=== PATIENT | female | born 1980 | race Two or more races ===

== ENCOUNTER 2025-04-19 18:49 | Emergency (ER) | payer MEDICAID, SELFPAY ==
[2025-04-19 18:50] VITALS: BMI 24.0
[2025-04-19 19:32] VITALS: BP 118/73; PULSE 66; RESP 16; TEMP 36.7; O2SAT 99
--- NOTE | 2025-04-19 19:36 | PD.EDABDPN ---
ED Abdominal Pain RME/HPI General Chief Complaint: Abdominal Pain Stated complaint: BILAT. LOWER ABD PAIN X1 DAY Time seen by provider: 04/19/25 18:55 Arrival date/time: 04/19/25 18:49 Source: patient, RN notes reviewed and old records reviewed Mode of arrival: ambulatory Limitations: no limitations RME / HPI RME / HPI narrative: 44yof presents to the ED for LLQ abdominal pain that started this morning. No fever, n/v/d or urinary symptoms reported. Ibuprofen taken this morning with mild relief. Related Data Previous Rx's ?Medication ?Instructions ?Recorded Promethazine/Codeine SYRUP * 5 ml PO Q6HR PRN COUGH OR 05/28/17 (PHENERGAN WITH CODEINE SYRUP *) CONGESTION #120 mL acetaminophen 500 mg tablet 500 mg PO Q6HR PRN PAIN #30 tabs 05/28/17 (Tylenol Extra Strength) albuterol sulfate 90 mcg/actuation 2 puff inhalation Q6HR PRN 05/28/17 aerosol inhaler (ProAir HFA) WHEEZING #1 inh benzocaine 20 %-menthol 0.5 % 1 spray topical TID #56 pumps 03/07/22 topical aerosol (Dermoplast (with menthol)) docusate sodium 100 mg capsule 100 mg PO BID #60 caps 03/07/22 (Colace) ibuprofen 800 mg tablet 800 mg PO Q6H PRN pain #120 tabs 03/07/22 lanolin 50 % topical ointment 1 applic topical TID PRN skin 03/07/22 irritation #15 tubes ibuprofen 600 mg tablet 600 mg PO Q6H PRN pain #20 tabs 04/19/25 methocarbamol 500 mg tablet 1,000 mg (2 x 500 mg) PO Q8H PRN 04/19/25 pain #30 tabs Allergies Allergy/AdvReac Type Severity Reaction Status Date / Time ampicillin Allergy Intermediate HIVES Verified 04/19/25 18:52 Review of Systems Review of Systems Systems Reviewed: All systems reviewed, normal except as documented Constitutional Constitutional: Denies chills and Denies fever(s) Gastrointestinal Gastrointestinal: Reports abdominal pain, Denies loose stools, Denies nausea and Denies vomiting Genitourinary Genitourinary: Denies dysuria and Denies hematuria Past Medical History Surgical History OTHER SURGICAL HX: denies pshx Social History SMOKING STATUS: Never smoker SUBSTANCE USE: does not use ALCOHOL: Never Past Medical History Comments PMH COMMENT: denies pmhx ED Exam General Limitations: Present no limitations General appearance: Present alert and in no apparent distress Head Head exam: Present atraumatic and normocephalic Eye Eye exam: Present normal appearance, PERRL and EOMI ENT ENT exam: Present normal exam and mucous membranes moist Neck Neck exam: Present normal inspection and full ROM Chest Chest inspection: Present normal inspection and symmetric chest wall rise Respiratory Respiratory exam: Present normal lung sounds bilaterally; Absent respiratory distress Cardiovascular Cardiovascular exam: Present regular rate and normal rhythm Abdominal Exam Abdominal exam: Present soft and tenderness (LLQ, mild); Absent distention, guarding or rebound Extremities Exam Extremities exam: Present normal inspection and full ROM Back Exam Back exam: Absent CVA tenderness (R) or CVA tenderness (L) Neurological Exam Neurological exam: Present alert and oriented X3 Psychiatric Psychiatric exam: Present normal affect and normal mood Skin Skin exam: Present warm, dry, intact and normal color Course Quality Measures none Orders Category Date Time Status CT Screening NOW Care 04/19/25 19:37 Completed Insert IV NOW Care 04/19/25 19:[address] abdomen pelvis w con Stat Exams 04/19/25 19:37 Completed CBC Stat Lab 04/19/25 19:55 Completed CMP [Comprehensive Metabolic Panel] Stat Lab 04/19/25 19:55 Completed HCG Qualitative,Urine Stat Lab 04/19/25 19:57 Completed Lipase Stat Lab 04/19/25 19:55 Completed UA [Urinalysis] Stat Lab 04/19/25 19:57 Completed Ketorolac Inj [Toradol Inj] Med 04/19/25 19:45 Discontinued 30 mg IVP X1 ONE Vital Signs Vital signs: Vital Signs Temperature 98.1 F 04/19/25 19:32 Pulse Rate 66 04/19/25 19:32 Respiratory Rate 16 04/19/25 19:32 Blood Pressure 118/73 04/19/25 19:32 Pulse Oximetry (%) 99 04/19/25 19:32 Oxygen Delivery Method Room Air 04/19/25 19:32 Abdominal Pain MDM MDM Narrative MDM Narrative:: 44yof presents to the ED for LLQ abdominal pain that started this morning. No fever, n/v/d or urinary symptoms reported. Ibuprofen taken this morning with mild relief. Patient updated on labs and imaging. Encouraged close follow-up with political organizer. Stable for dc, RTED precautions given. Patient data External records reviewed:: [facility] previous records (admit 12/21/16 for labor and delivery) Clinical information provided by:: patient Social determinants that could affect healthcare access:: other (specify) (poor access to healthcare, acculturation difficulty) Patient has the following chronic illnesses:: none How is presenting disease/condition affected by chronic disease/condition?: no chronic disease Evaluation data The following diagnostics were reviewed and interpreted by me:: lab results and radiology exam(s) Lab and/or radiology exams considered but not ordered:: none Interpretation Summary: No leukocytosis Negative upreg Negative urine No ASHLEY CT abdomen/pelvis: IMPRESSION: No CT findings of appendicitis No renal or ureteral calculi, no hydronephrosis 27 mm involuting left ovarian follicular cyst, recommend pelvic sonography follow-up Pelvic floor laxity Dictated By: Paulie Kumar MD Medications / Prescriptions Medications or Prescriptions considered but not ordered:: no antibiotics recommended at this time Medication administrations:: Medication Administration History Discontinued Medications Ketorolac Tromethamine (Ketorolac Inj 30 Mg/Ml Vial) 30 mg IVP X1 ONE Stop: 04/19/25 19:46 Last Admin: 04/19/25 20:06 Dose: 30 mg Documented By: BD above medication administered in ED Consultations Consultation(s) initiated? (list below): No Diagnosis Differential diagnosis abdominal pain: other (Diverticulitis, UTI, kidney stone, pyelonephritis, ovarian cyst, ovarian torsion, uterine fibroid) Most likely diagnosis given after review of the tests above:: Ovarian cyst Admission Indicated Admission indicated?: not indicated Admission Request Was there a request for admission?: No Disposition Plan Disposition Plan: Discharge Discharge Attestation Discharge Attestation: The patient and all family members were given an opportunity to ask questions and understood the discharge instructions. Discharge instructions specifically effects, indications for sooner follow up or return to the emergency department, and the expected course of current diagnosis. Patient condition: Stable Discharge Plan Plan Patient Disposition: HOME (Self Care) Patient condition on transfer: Stable Prescriptions/Referrals Prescriptions/Med Rec: New ibuprofen 600 mg tablet 600 mg PO Q6H PRN (Reason: pain) Qty: 20 0RF methocarbamol 500 mg tablet 1,000 mg PO Q8H PRN (Reason: pain) Qty: 30 0RF No Action acetaminophen [Tylenol Extra Strength] 500 MG tablet 500 mg PO Q6HR PRN (Reason: PAIN) Qty: 30 0RF albuterol sulfate [ProAir HFA] 8.5 GM HFA aerosol inhaler 2 puff Inhalation Q6HR PRN (Reason: WHEEZING) Qty: 1 0RF Rx Instructions: please give spacer Promethazine/Codeine SYRUP * (PHENERGAN WITH CODEINE SYRUP *) 120 ML syrup 5 ml PO Q6HR PRN (Reason: COUGH OR CONGESTION) Qty: 120 0RF Dermoplast (with menthol) 20-0.5 % aerosol 1 spray topical TID Qty: 56 0RF ibuprofen 800 mg tablet 800 mg PO Q6H MDD 4 PRN (Reason: pain) Qty: 120 0RF docusate sodium [Colace] 100 mg capsule 100 mg PO BID Qty: 60 0RF lanolin 50 % ointment 1 applic topical TID PRN (Reason: skin irritation) Qty: 15 0RF Problem List Clinical Impression: Cyst of left ovary Patient/Caregiver Discharge Instructions Education Materials: ED Ovarian Cyst Print Language: Grenadian Stand Alone Forms: [facility] Award Info., Patient Portal Info Letter PA/HIGH LIFT OPERATOR Supervising Physician PA/HIGH LIFT OPERATOR Supervising Physician: Shwetha
--- NOTE | 2025-04-19 19:37 | XR_ITS ---
Examination: CT abdomen with intravenous contrast CT pelvis with intravenous contrast 2-D coronal reconstructions 2-D sagittal reconstructions Date and time of exam: April 19, 2025, 2050 hours INDICATION: Onset left lower abdominal pain today. CTDI: vol (mGy) 14.5 DLP: (mGycm) 513 Technique: Multiple axial sections of the abdomen and pelvis have been obtained. 64 slice high-resolution scanner used. 3 mm axial sections have been obtained, post intravenous injection 60 cc [id number] 2-D sagittal, coronal reconstructions obtained. Low dose protocols were performed. One or more of the following dose reduction techniques were used; automated exposure control, adjustment of the mA and/or KV according to patient size, use of iterative reconstruction technique. Findings: No visualized liver or splenic lesion No gallstones No pancreatic or adrenal mass No renal or ureteral calculi, no hydronephrosis Abdominal aorta normal size 8 mm fat-containing umbilical hernia Appendix is mildly thickened, no definite inflammatory change No bowel obstruction Anteverted uterus Partially involuting 27 mm left ovarian follicular cyst Contracted urinary bladder Intact osseous structures Pelvic floor laxity IMPRESSION: No CT findings of appendicitis No renal or ureteral calculi, no hydronephrosis 27 mm involuting left ovarian follicular cyst, recommend pelvic sonography follow-up Pelvic floor laxity
[2025-04-19 20:06] LABS: Collection Type, Urine Clean Catch
[2025-04-19] MEDS: KETOROLAC INJ 30 MG/ML VIAL IVP (20:06)
[2025-04-19 20:08] LABS: Basophils # (Auto) 0.0 Thou/mm3 (0.0-0.2); Basophils % (Auto) 0 % (0-2.5); Eosinophils # (Auto) 0.0 Thou/mm3 (0.0-0.5); Eosinophils % (Auto) 1 % (0-10); Hematocrit 35.2 % (36.0-46.0); Hemoglobin 12.1 g/dL (12.0-16.0); Immature Granulocytes Auto 0.02 Thou/mm3 (0.00-0.00); Lymphocytes # (Auto) 2.6 Thou/mm3 (1.0-4.8); Lymphocytes % (Auto) 42 % (10-50); Mean Corpuscular HGB Conc 34.4 g/dl (31.0-37.0); Mean Corpuscular Hemoglobin 30.9 pg (25.0-35.0); Mean Corpuscular Volume 90 fL (80-100); Monocytes # (Auto) 0.4 Thou/mm3 (0.0-0.8); Monocytes % (Auto) 7 % (0-12); Neutrophils # (Auto) 3.1 Thou/mm3 (1.8-7.7); Neutrophils % (Auto) 49 % (37-80); Nucleated Red Blood Cell # 0.00 Thou/mm3 (0.00-0.00); Nucleated Red Blood Cell % 0 /100 WBC (0); Platelet Count 216 Thou/mm3 (140-440); RDW Standard Deviation 42.3 fL (36.4-46.3); Red Blood Count 3.91 Miln/mm3 (4.00-5.20); White Blood Count 6.2 Thou/mm3 (3.6-11.0)
[2025-04-19 20:18] LABS: Bilirubin,Urine Negative (Negative); Blood,Urine Negative (Negative); Clarity,Urine Clear (Clear/Hazy); Color,Urine Colorless (Lt Yel-Yel); Glucose, Urine Negative (Negative); Ketones,Urine Negative (Negative); Leukocyte Esterase,Urine Negative (Negative); Nitrite,Urine Negative (Negative); PH,Urine 6.5 (5.0-7.0); Protein,Urine Negative (Neg - Trace); RBC,Urine 1 /hpf (0-3); Specific Gravity,Urine 1.010 (1.001-1.035); Squamous Epithelial Cell,Urine 1 /hpf (0-5); Urobilinogen,Urine Negative mg/dL (0.0-1.0); WBC,Urine 1 /hpf (0-5)
[2025-04-19 20:19] LABS: HCG Qualitative,Urine Negative
[2025-04-19 20:38] LABS: Alanine Aminotransferase 18 U/L (10-49); Albumin, Serum 4.5 gm/dL (3.5-5.0); Albumin/Globulin Ratio 1.4 (1.2-2.2); Alkaline Phosphatase 65 U/L (46-116); Anion Gap 10 (7-16); Aspartate Amino Transferase 22 U/L (0-34); BUN/Creatinine Ratio 18 Ratio (12-20); Bilirubin,Total 0.9 mg/dL (0.3-1.2); Blood Urea Nitrogen 9 mg/dL (9-23); Calcium 8.8 mg/dL (8.3-10.6); Calcium (Corrected) 8.8 mg/dL (8.5-10.1); Carbon Dioxide 25.6 mMol/L (20.0-31.0); Chloride 105 mMol/L (98-107); Creatinine (Component) 0.5 mg/dL (0.6-1.3); Estimated Creatinine Clearance 124.0 mL/min (>60); Globulin 3.2 gm/dL (2.3-3.5); Glucose 106 mg/dL (74-106); Lipase 31 U/L (12-53); Osmolality,Calculated 279 (275-295); Potassium 3.4 mMol/L (3.4-5.1); Sodium 141 mMol/L (136-145); Total Protein 7.7 gm/dL (5.7-8.2); eGFR > 60 See Note
[2025-04-19 22:01] VITALS: BP 120/72; PULSE 68; RESP 16; TEMP 36.8; O2SAT 99
== END 2025-04-19 22:04 | disposition home or self-care (01) ==
LOC: SERX 21:45
PROVIDERS: Physician Assistant; Emergency Provider Emergency Medicine; PCP Family Medicine
DX: N83.02 Follicular cyst of left ovary (principal)
CPT/HCPCS: 36415; 74177; 80053; 81001; 81025; 83690; 85025; 96374; 99283; A4649; J1885; Q9967